=== PATIENT | male | born 1980 | race Caucasian/White ===

== ENCOUNTER 2019-09-11 15:11 | Emergency (ER) | payer OTHER, SELFPAY ==
[2019-09-11 15:12] VITALS: BP 140/98; PULSE 108; RESP 16; TEMP 36.8; O2SAT 98; BMI 26.5
--- NOTE | 2019-09-11 15:34 | RAD_ITS ---
STUDY: X-RAY - RIGHT HAND REASON FOR EXAM: Male, 39 years old. Pt fell down stairs yesterday. 4th-5th metacarpal pain and swelling. TECHNIQUE: 3 view(s) of the hand. COMPARISON: None. FINDINGS: Normal radiocarpal articulation. Normal distal radioulnar joint. Normal visualized carpal bones. Normal carpal articulations Normal carpometacarpal articulation of the thumb. Normal second through fifth carpometacarpal joints. There is a nondisplaced transverse fracture through the midportion of the fourth metacarpal. Normal metacarpophalangeal joint of the thumb. Normal interphalangeal joint of the thumb. Normal proximal and distal phalanges of the thumb. Normal metacarpophalangeal joints of the second through fifth fingers. Normal proximal and distal interphalangeal joints of the second through fifth fingers. Normal phalanges of the second through fifth fingers. Soft tissue swelling. RAD/Hand Min 3 Views IMPRESSION: Nondisplaced transverse fracture through the midportion of the fourth metacarpal with overlying soft tissue swelling. Electronically Signed: Quentin Jon, at 15:51 EDT , Service support ,
[2019-09-11] MEDS: Ibuprofen 400 MG Tablet 800 MG PO (16:00)
--- NOTE | 2019-09-11 16:37 | ED.VISSUMM ---
- ER Visit Summary Date of Service: 09/11/19 Chief Complaint: Right hand pain History of Present Illness: The patient is a 39 M with no primary care physician. He is left-hand dominant. Reports that yesterday he fell and injured his right hand. He reports he has a sharp pain is 10 on 10 severity. Is worsened by movement. Is relieved by rest and ibuprofen. Denies any paresthesias distally. He denies any other injuries or complaints. Physical Examination: Vitals: Stable. Afebrile. Neck: No vertebral tenderness. Full ROM without difficulty. Cleared by NEXUS criteria. Back: No vertebral tenderness. General: A&O x 3. NAD. Cardiovascular exam: Regular rate and rhythm, no murmur, rub or gallop. Respiratory exam: Chest nontender. No crepitus. Clear to auscultation bilaterally. No wheezes or stridor. Abdominal exam: Soft, nontender, nondistended, normal bowel sounds. No pain in RUQ or LUQ specifically. No peritoneal signs. Extremity: Right hand shows soft tissue swelling and severe tenderness palpation over the fourth metacarpal and moderate tensional patient over the fifth metacarpal. He is neuro vas intact distal to this. Test Results: Clinical Impression(s) from Imaging Studies Hand X-Ray 09/11/19 15:34 IMPRESSION: Nondisplaced transverse fracture through the midportion of the fourth metacarpal with overlying soft tissue swelling. Electronically Signed: Quentin Dnaay, at 15:51 EDT , Service support , Emergency Department Course and Treatment: Patient was treated with ibuprofen. He was placed in an ulnar gutter splint. I discussed the patient this may need surgery and asked if he wanted to be referred to a hand specialist. He states that he would like to stay in town. Treatment Plan: Patient be discharged instructions to follow-up Dr. Macias in 1 week. He understands that if she does not feel comfortable caring for this that he may require referral to a hand specialist. Return to the emergency department for any worsening symptoms. Disposition: To home in improved and stable condition. Impression: 1. Right fourth metacarpal fracture. 2. Ortho-Glass ulnar gutter splint, fabricated. This note was generated with [employer] dictation software. It may contain incorrect words, spelling, and punctuation that were not noted in review of the chart prior to signing ED Disposition - Plan for ED Patient: Disposition: Home or Assisted Living Instructions: ED Fx Hand Closed Prescriptions: Oxycodone HCl/Acetaminophen [Percocet 5/325] 1 tab PO Q6H PRN PRN 5 Days #20 tab PRN Reason: Pain Score 6-10/10 Prescription Printed Referrals: Loren Macias DO [STAFF PHYSICIAN] - 1 Week
[2019-09-11 17:06] VITALS: BP 129/63; PULSE 51; RESP 16; O2SAT 99
== END 2019-09-11 17:07 | disposition home or self-care (01) ==
LOC: ED 16:06
PROVIDERS: Emergency Provider Emergency Medicine
DX: S62.394A Other fracture of fourth metacarpal bone, right hand, initial encounter for closed fracture (principal); W10.9XXA Fall (on) (from) unspecified stairs and steps, initial encounter; Y93.9 Activity, unspecified; Y92.9 Unspecified place or not applicable; Z72.0 Tobacco use
CPT/HCPCS: 29125; 73130; 99282

== ENCOUNTER 2019-09-27 10:24 | Day surgery (SDC) | payer OTHER, SELFPAY ==
[2019-09-27] VITALS (7 sets, daily range): BP systolic 125–150; BP diastolic 82–106; PULSE 70–89; RESP 16; TEMP 36.5–37; O2SAT 97–100; BMI 26.5; BMI 25.9
--- NOTE | 2019-09-27 10:25 | RAD_ITS ---
STUDY: X-RAY - RIGHT HAND REASON FOR EXAM: Male, 39 years old. Fracture TECHNIQUE: 3 view(s) of the hand. COMPARISON: Comparison is made with prior study dated 05/13/2019. FINDINGS: Normal radiocarpal articulation. Normal distal radioulnar joint. Normal visualized carpal bones. Normal carpal articulations Normal carpometacarpal articulation of the thumb. Normal second through fifth carpometacarpal joints. Healing fracture through the midportion of the fourth metacarpal. Position is made Normal metacarpophalangeal joint of the thumb. Normal interphalangeal joint of the thumb. Normal proximal and distal phalanges of the thumb. Normal metacarpophalangeal joints of the second through fifth fingers. Normal proximal and distal interphalangeal joints of the second through fifth fingers. Normal phalanges of the second through fifth fingers. The soft tissue structures are unremarkable. RAD/Hand Min 3 Views IMPRESSION: Healing fracture through the midportion of the fourth metacarpal. Alignment is maintained. Electronically Signed: Quentin Jon, at 10:56 EDT , Service support ,
[2019-09-27] MEDS: Cefazolin 2 GM in 0.9% Normal Saline 100 ML IV (14:43)
--- NOTE | 2019-09-27 14:50 | RAD_ITS ---
STUDY: X-RAY - RIGHT HAND REASON FOR EXAM: Male, 39 years old. ORIF RIGHT 4TH [facility] TECHNIQUE: 3 intraoperative view(s) of the hand. COMPARISON: Same day. FINDINGS: 3 spot intraoperative views of the fourth metacarpal were performed. There is been reduction of displaced of fourth metacarpal fracture. There is placement of metallic plate and screws across the fracture site with gross anatomic alignment. Evaluation of soft tissues is limited due to technique. The entire aneurysm is not included on the [id number]. RAD/Hand 2 Views IMPRESSION: reduction of displaced of fourth metacarpal fracture. There is placement of metallic plate and screws across the fracture site with gross anatomic alignment Electronically Signed: Louie Gao, at 23:56 EDT Tel , Service support ,
--- NOTE | 2019-09-27 15:47 | DCINST_ITS ---
Discharge Diet: No Restrictions - leave splint intact, keep clean and dry, nwb right arm, follow up in 2 weeks Discharge Activity: May Not Drive May shower in (days): 1 Ice area for (Minutes): 20 - Every hour while awake. Weight Bearing Status: Weight bearing as tolerated Keep extremity elevated above heart level: Operative Extremity Call your doctor if your incision/area has: Continuous Slow Oozing, Sudden I ncreased Bleeding, Increased Pain/ Swelling, Increased Redness, Foul Smelling Discharge Call your doctor if you observe: Fever of 101 or Higher, Coldness, Increased Pain, Numbness or Tingling, Change in Color, Calf discomfort Allergies/Adverse Reactions: Allergies No Known Allergies Allergy (Verified 09/27/19 14:04) Medications to take at Discharge Ibuprofen [Advil] 200 mg PO Q6H PRN PRN 09/27/19 Oxycodone HCl/Acetaminophen [Percocet 5/325] 1 - 2 tab PO Q6H PRN PRN 5 Days #28 tab 09/27/19 oxycodone-acetaminophen 5 mg-325 mg tablet 1 ea PO PRN PRN 09/27/19 The following prescriptions were given: Oxycodone HCl/Acetaminophen [Percocet 5/325] 1 - 2 tab PO Q6H PRN PRN 5 Days #28 tab PRN Reason: Pain Transmission Status: Received by [facility] [place] [address] Primary Care Physician: Care Physician,No Primary [Primary Care Provider] - Test Results: Test results from this visit will be discussed in further detail at your follow- up appointment, if applicable. Please Follow Up With: Loren Macias, DO - [phone]
--- NOTE | 2019-09-27 15:47 | PCM.HP.BLA ---
History and Physical I have re-examined the patient. There are no clinical changes since date of exam. Intake Vital Signs 09/27/19 BMI 26.5 Intake Visit Reasons: Right hand Accompanied by: self Is patient in pain?: Yes Pain scale (1-10): 8 Allergies No Known Allergies Allergy (Verified 09/11/19 15:12) Medications oxycodone-acetaminophen 5 mg-325 mg tablet ea PO 09/27/19 [History Confirmed 09/27/19] PFSH Social History (Updated 09/27/19 @ 11:27 by AYLIN Ellis) Smoking Status: Current every day smoker HPI Right hand: Details: Parts of this documentation were recorded by a scribe, this documentation accurately reflects the service provided and the decisions made by me, AYLIN Ellis 09/27/19 1019. VALORIE SAMPSON is a 39 year old M NEW patient here today for right hand injury. Referred by the ER. DOI: 09/11/2019. Patient was walking down the stairs carrying a shopvac and slipped and fell and caught himself with right hand. When he stood up noticed a bump under his skin on the right hand. He went to the ER the next day. Ortho Exam Right Wrist/Hand Skin/Wound: Yes Swelling Right Wrist: Yes TTP Fracture site Sensation: Ulnar: I Left Wrist/Hand Skin/Wound: Yes Swelling Assessment & Plan Problems 1. Closed displaced fracture of shaft of fourth metacarpal bone of right hand with routine healing, subsequent encounter S62.324D Plan Patient presents to the office today with a fracture of the right fourth metacarpal. Patient states he sustained the injury approximately 2 weeks ago when he fell down the stairs carrying a shop vac. He was placed in a splint at the time and states he continue to work without restrictions. He states that there was one episode where he went to the point that something in a glass case and hit the end of his fingers which caused him some pain. He continues to have pain at the fracture site. He has normal sensation in the fingertips and function of the DIP joints. Radiographs taken today show evident displacement with impaction/loss of metacarpal height. At this point this is too much displacement and angulation and with loss of cascade we need to proceed with surgical intervention. At this time patient states he is only eaten a few minutes and had a couple sips of his pop and that is all. At this point we are to proceed with ORIF of the right fourth metacarpal today. Risks and benefits of procedure were discussed with patient and all of his questions were answered. Consent was signed in office today. Patient will head straight to the hospital at this time for COVID testing as well as preanesthesia testing. Patient will be in a splint postoperatively will wear this for 2 weeks. We will see patient 5 days postop for wound check and brace check. This note was generated with [employer] dictation software. It may contain incorrect words, spelling, and punctuation that were not noted in checking the note before signing. Orders Orders: Hand Min 3 Views Today S62.304A Coding Level of Care Code Off vis,new,level 3 Diagnoses Closed displaced fracture of shaft of fourth metacarpal bone of right hand with routine healing, subsequent encounter S62.324D ??Fracture type: closed
--- NOTE | 2019-09-27 15:48 | OP.PCM_ITS ---
Report of Operation Date of Procedure: 09/27/19 Pre-Operative Diagnosis: displaced right fourth metacarpal fracture Post-Operative Diagnosis: same Surgery/Procedure Performed:: orif right fourth metacarpal- synthes 2.0 lcp plate air analysis engineering technician: Timothy Cuellar Type of Anesthesia:: General Anesthesiologist: Timi Camargo Special Medications: tt-46 mins Estimated Blood Loss (mL): min Fluids Replaced: 900cc lr Description of Procedure: Preop note Patient is a 39-year-old male who fell down the stairs with holding a shot back into sustained an injury to his right hand. He was seen in the emergency room and splinted at time showed up to our office today 2 weeks after the injury with a displaced fourth metacarpal fracture with mallet reduced and rotated. Risk benefits and alternatives were discussed with patient. Risk including but not limited to blood loss, blood clot, infection, neurovascular and, failure procedure, loss of life and loss of limb. Patient is aware like proceed with open reduction internal fixation of the right fourth metacarpal Operative note Patient seen and examined preoperative holding area. Right hand was marked. Patient brought to the operating placed supine on the operating table. Signed, anesthesia, antibiotics were administered. The right arm was prepped and draped in usual sterile technique after tourniquet is placed upon his upper arm. All bony prominences well-padded SCDs placed on his bilateral lower extremity. We then marked out our incision we used the interspace between the fourth and fifth measured with fluoroscopy to ensure that we had good distance both proximally distally in order to fixate our plate against the bone. Timeout was then performed with an elevated exsanguinated and tourniquet was raised to a pressure of 250 torr. We then used a 15 blade to create our about 3-1/2 cm to 4 cm incision. We dissected down tenotomies to the level of the extensor tendons extensor tendons were then released and retracted out of the way of our fracture site. We then used a sharp freer elevator to elevate the periosteum off of the bone at the length of the plate. We then had fracture callus at the fracture site please note that preoperatively we did try to reduce him underclothes were not able to budge the fracture site which is upon looking upon to intraoperatively make sense because he has abundant callus around the fracture site at that time already. We debrided back the fracture site with a combination of a rongeur and a [place]. We then reduced the fracture to the and placed a 6-hole 2.0 mm Synthes plate. We fixated the plate both proximally and distally with cortical screws and then filled and remaining screws both proximally and distally ensuring that the bone and that the plate did not encroach on the joints either proximally or distally. After achieving anatomic reduction we then checked the cascade to make sure that it was intact which it was. We oversewed the periosteum over the plate with 3-0 Vicryl closed the skin with 2-0 Vicryl and the subcuticular subcuticular and the skin with running 4-0 Monocryl. Sterile dressings and a splint was applied to the right upper extremity. Tourniquet deflated for total working time of 46 minutes. Patient taught procedure well no complication transferred recovery room stable condition Postoperative note We will call his girlfriend she is not present Follow-up in 2 weeks Call with increased pain numbness tingling further issues arise Pharmacy home pharmacy has pain prescription This note was generated with [employer] dictation software. It may contain incorrect words, spelling, and punctuation that were not noted in checking the note before signing.
[2019-09-27] MEDS: Bupivacaine Mpf 0.5% 30 ML VIAL (15:50)
[2019-09-27] MEDS: Mupirocin Ointment 22gm Tube 1 APPLIC (15:50)
[2019-09-27] MEDS: HYDROcodone Bitartrate/Apap 5/325 Tablet PO (16:57)
== END 2019-09-27 17:35 | disposition home or self-care (01) ==
LOC: HPRAD 11:25 → SDC 11:56 → HPRAD 11:57 → AC 12:12
PROVIDERS: Referring Provider Orthopaedic Surgery; Visit Provider Orthopaedic Surgery
PROC: (CPT 26615; principal; 2019-09-27 13:45)
DX: S62.324A Displaced fracture of shaft of fourth metacarpal bone, right hand, initial encounter for closed fracture (principal); W10.9XXA Fall (on) (from) unspecified stairs and steps, initial encounter; Y93.89 Activity, other specified; Y92.9 Unspecified place or not applicable; Z87.891 Personal history of nicotine dependence
CPT/HCPCS: 01830; 26615; 73120; 73130; 76000; 87635; C1713; C9803; G2023; J7120; J2405; U0003

== ENCOUNTER → 2019-10-08 11:06 | Outpatient (CLI) | payer OTHER, SELFPAY ==
[2019-09-27 14:25] VITALS: BMI 25.9
--- NOTE | 2019-10-08 11:15 | RAD_ITS ---
STUDY: X-RAY - RIGHT HAND REASON FOR EXAM: Male, 39 years old patient with reinjury of right hand after fall at work. Patient has had recent open reduction internal fixation of fracture of the fourth metacarpal. TECHNIQUE: 3 view(s) of the hand. COMPARISON: Radiographs of the right hand dated September 27, 2019. FINDINGS: There is joint space narrowing of the radiocarpal articulation consistent with degenerative arthrosis. There is a negative ulnar variant of the distal radioulnar articulation. There are degenerative changes of the distal radioulnar articulation. Normal visualized carpal bones. Normal carpal articulations Normal carpometacarpal articulation of the thumb. Normal second through fifth carpometacarpal joints. The patient has had open reduction and internal fixation of a mid fourth metacarpal fracture with plate and screws. The fracture is still visible. 1 the proximal screws appears to be displaced posteriorly. This is probably unchanged since the previous intraoperative radiographs dated September 27, 2019. Normal metacarpophalangeal joint of the thumb. Normal interphalangeal joint of the thumb. Normal proximal and distal phalanges of the thumb. Normal metacarpophalangeal joints of the second through fifth fingers. Normal proximal and distal interphalangeal joints of the second through fifth fingers. Normal phalanges of the second through fifth fingers. The patient has an ulna spica splint. There is soft tissue swelling. RAD/Hand Min 3 Views IMPRESSION: 1. Unchanged postoperative appearance of the fourth metacarpal after open reduction internal fixation. 2. No radiographic evidence for acute fracture or dislocation. Electronically Signed: Rosa M Paredes MD at 9:40 EDT , Service support ,
== END ==
LOC: HPRAD 11:07
PROVIDERS: Referring Provider Physician Assistant; Visit Provider Physician Assistant
DX: S62.324D Displaced fracture of shaft of fourth metacarpal bone, right hand, subsequent encounter for fracture with routine healing (principal); W19.XXXD Unspecified fall, subsequent encounter
CPT/HCPCS: 73130